=== PATIENT | female | born 1980 | race Two or more races ===

== ENCOUNTER 2024-11-05 22:11 | Emergency (ER) | payer MEDICAID, SELFPAY ==
[2024-11-05 22:14] VITALS: BMI 31.3
[2024-11-05 22:27] VITALS: BP 118/81; PULSE 107; RESP 18; TEMP 36.7; O2SAT 96
--- NOTE | 2024-11-05 22:30 | PD.EDANIML ---
ED Animal Bite RME/HPI General Chief Complaint: Animal Bite Stated Complaint: CAT BITE Time Seen by Provider: 11/05/24 22:14 Source: patient Arrival date/time: 11/05/24 22:11 This is a case of 44-year-old female who came into the emergency room due to multiple punctures on the left upper arm and left forearm secondary to cat bite patient tetanus shot is not up-to-date no other injury noted Limitations: no limitations Related Data Previous Rx's ?Medication ?Instructions ?Recorded amoxicillin 875 mg-potassium 1 tab PO BID #20 tabs 11/05/24 clavulanate 125 mg tablet mupirocin 2 % topical ointment 1 applic topical BID #15 grams 11/05/24 Allergies Allergy/AdvReac Type Severity Reaction Status Date / Time No Known Allergies Allergy Verified 11/05/24 22:18 Review of Systems Review of Systems Systems Reviewed: All systems reviewed, normal except as documented Constitutional Constitutional: Reports system reviewed and no additional complaints, except as documented Cardiovascular Cardiovascular: Reports system reviewed and no additional complaints, except as documented Respiratory Respiratory: Reports system reviewed and no additional complaints, except as documented Gastrointestinal Gastrointestinal: Reports system reviewed and no additional complaints, except as documented Genitourinary Genitourinary: Reports system reviewed and no additional complaints, except as documented Musculoskeletal Musculoskeletal: Reports system reviewed and no additional complaints, except as documented Integumentary/Breasts Skin/Breast: Reports other (Multiple puncture wound ) Neurologic Neurologic: Reports system reviewed and no additional complaints, except as documented Past Medical History Social History SMOKING STATUS: Never smoker ED Exam General Limitations: Present no limitations General appearance: Present alert and in no apparent distress Head Head exam: Present atraumatic Eye Eye exam: Present normal appearance, PERRL and EOMI ENT ENT exam: Present normal exam, normal oropharynx and mucous membranes moist Neck Neck exam: Present normal inspection, full ROM and trachea midline; Absent tenderness, meningismus or lymphadenopathy Chest Chest inspection: Present normal inspection and symmetric chest wall rise; Absent tenderness Respiratory Respiratory exam: Present normal lung sounds bilaterally; Absent respiratory distress, wheezes, stridor, accessory muscle use or prolonged expiratory phase Cardiovascular Cardiovascular exam: Present regular rate, normal rhythm and normal heart sounds; Absent systolic murmur or diastolic murmur Abdominal Exam Abdominal exam: Present soft and normal bowel sounds Extremities Exam Extremities exam: Present normal inspection and full ROM Back Exam Back exam: Present normal inspection and full ROM Neurological Exam Neurological exam: Present alert, oriented X3, CN II-XII intact, normal gait and reflexes normal; Absent motor sensory deficit Psychiatric Psychiatric exam: Present normal affect and normal mood Skin Skin exam: Present warm, dry, intact, normal color and other (Multiple puncture wounds on the left arm and left forearm no bleeding no foreign body no bony injury no redness no swelling no discharge ROM intact pulses were full and equal capillary refill less than 2 seconds) Course Quality Measures none Orders Category Date Time Status Wound Care NOW Care 11/05/24 22:27 Active TET,DIP/PERT AC (Adult)-Tdap [Boostrix Adult (Tdap) Med 11/05/24 22:28 Once Vacc] 0.5 ml IMI .ONCE ONE Vital Signs Vital signs: Vital Signs Temperature 98.1 F 11/05/24 22:27 Pulse Rate 107 H 11/05/24 22:27 Respiratory Rate 18 11/05/24 22:27 Blood Pressure 118/81 11/05/24 22:27 Pulse Oximetry (%) 96 11/05/24 22:27 Oxygen Delivery Method Room Air 11/05/24 22:27 Oxygen saturation 96% on room air normal Animal Bite MDM Narrative MDM Narrative:: This is a case of 44-year-old female who came into the emergency room due to multiple punctures on the left upper arm and left forearm secondary to cat bite patient tetanus shot is not up-to-date no other injury noted physical examination patient is awake alert oriented not in distress nontoxic looking patient sustained a multiple puncture wound on the left arm and left forearm no redness no swelling no bleeding no foreign body no discharge no redness no abscess no cellulitis ROM intact neurovascular intact wound was cleaned with normal saline and Betadine and apply triple antibiotic ointment patient was given Tdap here in the emergency room patient was discharged with Augmentin and mupirocin to prevent infection patient will continue the wound care at home patient will finish the course of antibiotic for any signs and symptoms of infection she is well-informed return in the emergency room immediately or call 911 Patient was discharged with comfortable condition walking with stable gait. Patient verbalized no further complains explained diagnosis and answered patient question. Patient is comfortable with the proposed management plan including the need to follow up with his/her primary care physician and any specialist if applicable Discussed patient for any urgent condition or worsening sx, He/She needed to go to emergency room immediately or call 911. Patient acknowledge the responsibility to follow up as instructed and to monitor her/his symptoms. For any persistence of the symptoms for more than 3-5 days return precaution advised. Discussed the result of the test and was given printed discharge instruction Patient data External records reviewed:: [facility] previous records Clinical information provided by:: patient Social determinants that could affect healthcare access:: none Patient has the following chronic illnesses:: None How is presenting disease/condition affected by chronic disease/condition?: no chronic disease Evaluation data The following diagnostics were reviewed and interpreted by me:: other (specify) (None) Lab and/or radiology exams considered but not ordered:: None Interpretation Summary: None Medications / Prescriptions Medications or Prescriptions considered but not ordered:: Given Medication administrations:: Medication Administration History Diphtheria/Tetanus/Acell Pertussis (Diphth,Pertuss(Acell),Tet Vac 0.5 Ml Syr- Adult) 0.5 ml IMi .ONCE ONE Stop: 11/05/24 22:29 Given Consultations Consultation(s) initiated? (list below): No Diagnosis Differential diagnosis animal bite: bite by animal, cat bite and dog bite Most likely diagnosis given after review of the tests above:: Cat bite punctured wound Admission Indicated Admission indicated?: not indicated Explain why admission is indicated or not indicated:: Not indicated Admission Request Was there a request for admission?: No Admission Attestation Admission request attestation: Not indicated Disposition Plan Disposition Plan: Discharge Discharge Attestation Discharge Attestation: The patient and all family members were given an opportunity to ask questions and understood the discharge instructions. Discharge instructions specifically effects, indications for sooner follow up or return to the emergency department, and the expected course of current diagnosis. Patient condition: Stable Discharge Plan Plan Patient Disposition: HOME (Self Care) Prescriptions/Referrals Prescriptions/Med Rec: New amoxicillin-pot clavulanate 875-125 mg tablet 1 tab PO BID Qty: 20 0RF mupirocin 2 % ointment 1 applic topical BID Qty: 15 0RF Problem List Clinical Impression: Cat bite, Multiple puncture wounds of left shoulder and upper arm Patient/Caregiver Discharge Instructions Education Materials: ED Cat Bite, ED Puncture Wound (General) Additional Instructions: Follow-up with your primary care physician in 2 days for reevaluation for any signs and symptoms of infection redness swelling discharge from the wound pain fever chills for any worsening symptoms or any emergent concern return to the emergency room immediately or call 911 keep the wound clean and dry finish the course of redness Print Language: Bahraini Stand Alone Forms: Sarai Award Info., Patient Portal Info Letter PA/REFERENCE LIBRARIAN Supervising Physician PA/REFERENCE LIBRARIAN Supervising Physician: dr morales
[2024-11-05] MEDS: DIPHTH,PERTUSS(ACELL),TET VAC 0.5 ML SYR- ADULT IMi (22:52)
== END 2024-11-05 22:55 | disposition home or self-care (01) ==
LOC: SERX 22:47
PROVIDERS: Emergency Provider Emergency Medicine
DX: S41.032A Puncture wound without foreign body of left shoulder, initial encounter (principal); S51.832A Puncture wound without foreign body of left forearm, initial encounter; W55.01XA Bitten by cat, initial encounter; Z23 Encounter for immunization
CPT/HCPCS: 90471; 90715; 99282

== ENCOUNTER 2025-03-20 11:14 | Observation (INO) | payer MEDICAID, SELFPAY ==
--- NOTE | 2025-03-16 07:00 | EKG_ITS ---
[facility] Test Date: 2025-03-16 Pat Name: ESTHER LOVE Department: Room: - Gender: Female Brain Surgeon: CYNDIE : 1980 Requested By: Mateo Arevalo Order Number: [id number] Reading MD: Mateo Arevalo Measurements Intervals [place] Rate: 63 P: 52 CO: 179 QRS: 69 QRSD: 93 T: 61 QT: 405 QTc: 417 Interpretive Statements SINUS RHYTHM INCOMPLETE RIGHT BUNDLE BRANCH BLOCK [90+ ms QRS DURATION, TERMINAL R IN V1/V2, 40+ ms S IN I/aVL/V4/V5/V6] No previous ECG available for comparison /store/S0/[id number]/ecg/[id number].pdf
[2025-03-16 07:14] VITALS: BMI 32.5
[2025-03-16 07:36] LABS: Collection Type, Urine Clean Catch
[2025-03-16 08:23] LABS: Bilirubin,Urine Negative (Negative); Blood,Urine Negative (Negative); Clarity,Urine Clear (Clear/Hazy); Color,Urine Yellow (Lt Yel-Yel); Glucose, Urine Negative (Negative); Ketones,Urine Negative (Negative); Leukocyte Esterase,Urine Negative (Negative); Nitrite,Urine Negative (Negative); PH,Urine 6.5 (5.0-7.0); Protein,Urine Negative (Neg - Trace); RBC,Urine 2 /hpf (0-3); Specific Gravity,Urine 1.024 (1.001-1.035); Squamous Epithelial Cell,Urine 7 /hpf (0-5); Urobilinogen,Urine Negative mg/dL (0.0-1.0); WBC,Urine 2 /hpf (0-5)
[2025-03-16 08:27] LABS: Basophils # (Auto) 0.1 Thou/mm3 (0.0-0.2); Basophils % (Auto) 1 % (0-2.5); Eosinophils # (Auto) 0.3 Thou/mm3 (0.0-0.5); Eosinophils % (Auto) 4 % (0-10); Hematocrit 40.3 % (36.0-46.0); Hemoglobin 13.3 g/dL (12.0-16.0); Immature Granulocytes Auto 0.05 Thou/mm3 (0.00-0.00); Lymphocytes # (Auto) 2.5 Thou/mm3 (1.0-4.8); Lymphocytes % (Auto) 29 % (10-50); Mean Corpuscular HGB Conc 33.0 g/dl (31.0-37.0); Mean Corpuscular Hemoglobin 27.9 pg (25.0-35.0); Mean Corpuscular Volume 85 fL (80-100); Monocytes # (Auto) 0.6 Thou/mm3 (0.0-0.8); Monocytes % (Auto) 7 % (0-12); Neutrophils # (Auto) 5.0 Thou/mm3 (1.8-7.7); Neutrophils % (Auto) 58 % (37-80); Nucleated Red Blood Cell # 0.00 Thou/mm3 (0.00-0.00); Nucleated Red Blood Cell % 0 /100 WBC (0); Platelet Count 235 Thou/mm3 (140-440); RDW Standard Deviation 46.7 fL (36.4-46.3); Red Blood Count 4.76 Miln/mm3 (4.00-5.20); White Blood Count 8.6 Thou/mm3 (3.6-11.0)
[2025-03-16 08:33] LABS: Anion Gap 7 (7-16); BUN/Creatinine Ratio 16 Ratio (12-20); Blood Urea Nitrogen 13 mg/dL (9-23); Calcium 8.9 mg/dL (8.3-10.6); Carbon Dioxide 29.1 mMol/L (20.0-31.0); Chloride 105 mMol/L (98-107); Creatinine (Component) 0.8 mg/dL (0.6-1.3); Estimated Creatinine Clearance 100.1 mL/min (>60); Glucose 89 mg/dL (74-106); Osmolality,Calculated 280 (275-295); Potassium 4.1 mMol/L (3.4-5.1); Sodium 141 mMol/L (136-145); eGFR > 60 See Note
[2025-03-16 09:40] LABS: HCG Qualitative,Urine Negative
--- NOTE | 2025-03-19 11:19 | ESHP_ITS ---
RE: ESTHER LOVE : 1980 DATE OF ADMISSION: 03/20/2025 HISTORY OF PRESENT ILLNESS: A 45-year-old female who was referred to me with history of gross urinary stress incontinence. She loses urine on any kind of stress, sneezing, coughing, laughing. This has been going on for 3 years and it is getting worse. PAST SURGICAL HISTORY: Previous surgery 1 and a carpal tunnel release. SOCIAL HISTORY: Patient has 1 child. ALLERGIES: NONE KNOWN. PAST MEDICAL HISTORY: No history of diabetes mellitus. No history of hypertension. HOME MEDICATIONS: None. PHYSICAL EXAMINATION: HEENT: Normal. Neck: Supple. Lungs: Clear. Heart: Sounds are normal. Abdomen: Soft without any organomegaly. No guarding. No rigidity. Extremities: Normal. Pelvic: Reveals grade 2 urethrocele. PLAN: Patient had cystoscopy, which revealed a low residual urine, no intravesical stones or tumors, normal capacity bladder, no uninhibited bladder contractions. Patient had gross urinary stress incontinence with positive Juan's test. Patient was given treatment options. She has decided to have surgery. She is scheduled to have bladder neck suspension, cystoscopy, urethrolysis with Lynx vaginal sling procedure. Planned procedure risks and complications have been discussed with the patient. Patient has understood them and agreed to proceed. DT: 11:06:24 TT: 11:17:00 Ref: [id number] - TID: [id number]
[2025-03-20] VITALS (16 sets, daily range): BP systolic 90–116; BP diastolic 53–66; PULSE 59–90; RESP 12–20; TEMP 36.2–36.6; O2SAT 94–99; BMI 32.8
--- NOTE | 2025-03-20 07:30 | CHAP ---
Visited briefly with patient and gave encouragement and prayer.
--- NOTE | 2025-03-20 10:50 | SUR.PHASEI ---
1050: Pt. AAOx4, vitals stable, breathing unlabored, no complaint of pain or nausea, dressing in place CDI, no active bleed noted, tolentino catheter in place draining clear yellow urine, report received from Philip FERNANDEZ and Ryan MOLINA.
--- NOTE | 2025-03-20 11:35 | SUR.PHASEII ---
pt resting with eyes closed, vitals stable, breathing unlabored, dressing clean, dry, and intact, tolentino catheter in place draining clear yellow urine, report received from Kaylen OMLINA
--- NOTE | 2025-03-20 12:01 | ESOP_ITS ---
RE: ESTHER LOVE : 1980 DATE OF OPERATION: 03/20/2025 PREOPERATIVE DIAGNOSIS: Gross urinary stress incontinence. POSTOPERATIVE DIAGNOSIS: Gross urinary stress incontinence. PROCEDURE PERFORMED: Bladder neck suspension, cystoscopy, urethrolysis with Lynx vaginal sling procedure. ANESTHESIA: General by Dr. Cole. INDICATIONS: The patient is a 45-year-old female who was referred to me with history of gross urinary stress incontinence. She loses urine on any kind of stress or sneezing, coughing, laughing, or bending. She is troubled with this thing. She was seen in the office. She had a cystoscopy, which revealed a low residual urine, normal capacity bladder, no uninhibited bladder contractions when the bladder was filled. There are no intravesical stones or tumors. There was a gross urinary stress incontinence with positive Juan's test. The patient has a grade 2 urethrocele. She was given treatment options. She has decided to have surgery. Now, she is scheduled to have bladder neck suspension, cystoscopy, urethrolysis with Lynx vaginal sling procedure. Planned procedure, risks, and complications have been discussed with the patient. The patient understood them and agreed to proceed. DESCRIPTION OF PROCEDURE: After the patient was brought to the operating table under adequate general anesthesia in dorsal lithotomy position, parts were prepped and draped in the usual fashion. A 16 Kiswahili Friedman catheter was then inserted into the bladder and was left indwelling. Anterior vaginal wall submucosal injection was then carried out underneath the mucosa on the anterior vaginal wall and a small vertical incision was then made between mid urethra towards the bladder neck about 0.5 to 1 cm long. Dissection was then carried out on both sides underneath the vaginal mucosa for about 2 cm and then dissection was carried out on both sides. Deep endopelvic fascia was entered and urethrolysis was carried out on both sides. Retropubic space was identified on both sides. At this point, a small transverse incisions of 0.5 cm were made in the suprapubic area. From this suprapubic wound into the vaginal wound, I passed Lynx needles underneath the pubic bone under finger control. The needles were passed from the suprapubic area into the vaginal wound behind the pubic bone. At this point, cystoscopy was carried out. Friedman catheter was removed. Cystoscope was inserted into her bladder. There was no evidence of any injury to the bladder and there were no needles seen inside the bladder. The bladder appeared to be intact. Cystoscope was then removed and Friedman catheter was placed back into the bladder. Vaginal sling was attached to both needles and was pulled in place. Excess of the sling and the sleeve of the sling were removed. Excessive tension on the sling was avoided. Anterior vaginal wall incision was then closed with continuous sutures of 2-0 chromic catgut. Suprapubic wounds were closed with interrupted sutures of 3-0 chromic catgut. Kerlix soaked in the Betadine solution was used as a vaginal packing. Sterile dressing was then applied. The patient was then transferred to the recovery room in a satisfactory condition, having tolerated the entire procedure well. DT: 11:12:52 TT: 11:59:00 Ref: [id number] - TID: [id number]
--- NOTE | 2025-03-20 12:07 | SUR.PHASEII ---
report to Kaylen MOLINA
[2025-03-20] MEDS: DEXTROSE 5%-LACTATED RINGERS 1,000 ML 100 ML IV ×2 (13:57→23:06)
--- NOTE | 2025-03-20 14:00 | SUR.PHASEII ---
1400: Pt. AAOx4, vitals stable, breathing unlabored, no complaint of pain or nausea, dressing in place CDI, no active bleed noted, tolentino catheter in place draining clear yellow urine, pt. tolerated bites of pudding and ice chips well, gave report to Nancy MOLINA prior to transfer to room 354. Family made aware of transfer to room, pt. took belongings home.
[2025-03-20] MEDS: HYDROcodone/APAP 5/325 TABLET 1 TAB PO (17:07)
[2025-03-20] MEDS: KETOROLAC INJ 30 MG/ML VIAL IVP (23:06)
[2025-03-21] VITALS: BP 102/60; PULSE 64; RESP 17; TEMP 36.4; O2SAT 96
[2025-03-21 04:00] VITALS: BP 102/67; PULSE 84; RESP 17; TEMP 36.4; O2SAT 95
[2025-03-21 06:18] LABS: Basophils # (Auto) 0.1 Thou/mm3 (0.0-0.2); Basophils % (Auto) 0 % (0-2.5); Eosinophils # (Auto) 0.1 Thou/mm3 (0.0-0.5); Eosinophils % (Auto) 1 % (0-10); Hematocrit 35.3 % (36.0-46.0); Hemoglobin 11.8 g/dL (12.0-16.0); Immature Granulocytes Auto 0.06 Thou/mm3 (0.00-0.00); Lymphocytes # (Auto) 2.2 Thou/mm3 (1.0-4.8); Lymphocytes % (Auto) 16 % (10-50); Mean Corpuscular HGB Conc 33.4 g/dl (31.0-37.0); Mean Corpuscular Hemoglobin 28.4 pg (25.0-35.0); Mean Corpuscular Volume 85 fL (80-100); Monocytes # (Auto) 1.0 Thou/mm3 (0.0-0.8); Monocytes % (Auto) 7 % (0-12); Neutrophils # (Auto) 10.2 Thou/mm3 (1.8-7.7); Neutrophils % (Auto) 75 % (37-80); Nucleated Red Blood Cell # 0.00 Thou/mm3 (0.00-0.00); Nucleated Red Blood Cell % 0 /100 WBC (0); Platelet Count 194 Thou/mm3 (140-440); RDW Standard Deviation 46.5 fL (36.4-46.3); Red Blood Count 4.16 Miln/mm3 (4.00-5.20); White Blood Count 13.5 Thou/mm3 (3.6-11.0)
[2025-03-21 06:39] LABS: Albumin, Serum 3.7 gm/dL (3.5-5.0); Anion Gap 9 (7-16); BUN/Creatinine Ratio 15 Ratio (12-20); Blood Urea Nitrogen 9 mg/dL (9-23); Calcium 8.7 mg/dL (8.3-10.6); Calcium (Corrected) 8.9 mg/dL (8.5-10.1); Carbon Dioxide 26.0 mMol/L (20.0-31.0); Chloride 105 mMol/L (98-107); Creatinine (Component) 0.6 mg/dL (0.6-1.3); Estimated Creatinine Clearance 134.4 mL/min (>60); Glucose 110 mg/dL (74-106); Osmolality,Calculated 279 (275-295); Phosphorous 3.8 mg/dL (2.4-5.1); Potassium 3.7 mMol/L (3.4-5.1); Sodium 140 mMol/L (136-145); eGFR > 60 See Note
[2025-03-21 08:00] VITALS: BP 111/65; PULSE 61; RESP 17; TEMP 36.4; O2SAT 98
[2025-03-21] MEDS: LEVOFLOXACIN/D5W 500 MG IVPB 500 MG/100 ML BAG 100 MG IV (08:06)
[2025-03-21] MEDS: KETOROLAC INJ 30 MG/ML VIAL IVP (08:55)
--- NOTE | 2025-03-21 09:30 | CHAP ---
Visited with patient and prayed with her.
[2025-03-21] MEDS: DEXTROSE 5%-LACTATED RINGERS 1,000 ML 100 ML IV (11:42)
[2025-03-21 12:00] VITALS: BP 105/62; PULSE 77; RESP 17; TEMP 36.7; O2SAT 97
== END 2025-03-21 13:10 | disposition home or self-care (01) ==
LOC: S3NX 14:24
PROVIDERS: Admitting Provider Surgery; PCP Physician Assistant; Referring Provider Surgery; Visit Provider Surgery
PROC: 0TJB8ZZ Inspection of Bladder, Via Natural or Artificial Opening Endoscopic (ICD-10-PCS; CPT 57288; principal; 2025-03-20 09:00)
DX: N39.3 Stress incontinence (female) (male) (principal); Z01.810 Encounter for preprocedural cardiovascular examination; N81.0 Urethrocele
CPT/HCPCS: 57288; 36415; 80048; 80069; 81001; 81025; 85025; 87086; 93005; 96374; A4217; A4649; C1771; G0378; J0131; J1100; J1885; J1956; J2250; J2405; J2704; J2765; J3010; J7121; A9270